=== PATIENT | female | born 1960 | race Caucasian/White ===

== ENCOUNTER 2017-07-01 05:40 | Emergency (ER) | payer SELFPAY ==
[~2017-07-01] VITALS: Ht 170.2 cm; Wt 65.0 kg
[~2017-07-01 05:40] MED LIST: ALBU6.7H PO; AMOX1TAB61 PO; TIOT18CA INH
[2017-07-01] MEDS ORDERED: ALBUTEROL SULFATE 2.5 MG/3 ML ONE (06:00)
[2017-07-01] MEDS ORDERED: SODIUM CHLORIDE 0.9% 1,000 ML IV ONE (06:07)
[2017-07-01] MEDS ORDERED: SODIUM CHLORIDE 0.9% 1,000ML IVBOLUS ONE (06:30)
[2017-07-01 06:51] LABS: HEMATOCRIT 43.9 % (34.6-47.8); HEMOGLOBIN 14.9 g/dL (11.7-16.4); WHITE BLOOD COUNT 12.2 x10^3/uL (3.4-10)
[2017-07-01] MEDS ORDERED: ALBUTEROL SULFATE 2.5 MG/3 ML NPPB ONE (07:00)
[2017-07-01 07:04] LABS: BLOOD UREA NITROGEN 13 mg/dL (7-18)
[2017-07-01 07:17] LABS: IS PT STATUS REG ER OR PRE ER? YES
[2017-07-01] MEDS ORDERED: LIDOCAINE 1%, 20ML SQ ONE (07:30)
[2017-07-01] MEDS ORDERED: CEFAZOLIN 1,000 MG IM ONE (08:00)
[2017-07-01] MEDS ORDERED: CEFAZOLIN 1,000 MG ONE (08:26)
[2017-07-01 09:09] VITALS: BP 130/83
== END 2017-07-01 09:11 | disposition home or self-care (01) ==
LOC: ED 08:30
DX: J20.9 Acute bronchitis, unspecified (principal); N76.4 Abscess of vulva
CPT/HCPCS: 36415; 56405; 71010; 80048; 82040; 84436; 84443; 84484; 85025; 85379; 93005; 94640; 96372; 99285; J0690; J7512; J7613

== ENCOUNTER 2018-05-23 02:14 | Emergency (ER) | payer SELFPAY ==
[~2018-05-23] VITALS: Ht 170.2 cm; Wt 75.0 kg
[2018-05-23] MEDS ORDERED: ONDANSETRON ODT 4 MG ONE (02:40)
[2018-05-23] MEDS ORDERED: HYDROcodone/APAP 5/325 TABLET ONE (02:40)
[2018-05-23] MEDS ORDERED: OXYcodone/APAP 5/325MG TABLET ONE (02:52)
[2018-05-23] MEDS ORDERED: OXYcodone/APAP 5/325MG TABLET PO ONE (03:00)
[2018-05-23] MEDS ORDERED: ONDANSETRON ODT 4 MG PO ONE (03:00)
[2018-05-23 03:20] LABS: ALANINE AMINOTRANSFERASE 30 U/L (12-78); ALBUMIN 3.6 g/dL (3.4-5.0); ANION GAP 7 mmol/L (5-15); CALCIUM 8.8 mg/dL (8.5-10.1); CHLORIDE 107 mmol/L (98-107); CREATININE 1.06 mg/dL (0.55-1.02)
[2018-05-23 03:22] LABS: ALKALINE PHOSPHATASE 105 U/L (45-117); BILIRUBIN,TOTAL 0.3 mg/dL (0.2-1.0); TOTAL PROTEIN 7.4 g/dL (6.4-8.2)
[2018-05-23 03:29] LABS: BASOPHILS # (AUTO) 0.14 x10^3/uL (0-0.1); BASOPHILS % (AUTO) 1 % (0-1); EOSINOPHILS # (AUTO) 0.21 x10^3/uL (0-0.4); EOSINOPHILS % (AUTO) 2 % (1-7); LYMPHOCYTES # (AUTO) 3.45 x10^3/uL (1-3.4); LYMPHOCYTES % (AUTO) 26 % (22-44); MD NO; MEAN CORPUSCULAR HEMOGLOBIN 29.5 pg (27.0-34.8); MEAN CORPUSCULAR HGB CONC 33.7 g/dL (32.4-35.8); MEAN CORPUSCULAR VOLUME 87.4 fL (80-100); MONOCYTES % (AUTO) 9 % (2-9); NEUTROPHILS # (AUTO) 8.23 x10^3/uL (1.8-6.8); NEUTROPHILS % (AUTO) 62 % (42-75); PLATELET COUNT 316 x10^3/uL (130-400); RED BLOOD COUNT 5.24 x10^6/uL (3.82-5.3); RED CELL DISTRIBUTION WIDTH 12.9 % (9.6-15.2)
[2018-05-23 05:11] VITALS: BP 127/65
== END 2018-05-23 05:12 | disposition home or self-care (01) ==
LOC: ED 05:00
DX: M25.551 Pain in right hip (principal); R10.31 Right lower quadrant pain; J45.909 Unspecified asthma, uncomplicated; I10 Essential (primary) hypertension
CPT/HCPCS: 36415; 72110; 73502; 80053; 80307; 85025; 99285; Q0162

== ENCOUNTER 2021-04-02 19:48 | Emergency (ER) | payer MEDICAID ==
[~2021-04-02] VITALS: Ht 172.7 cm; Wt 74.8 kg
[~2021-04-02 19:48] MED LIST changes: -ALBU6.7H PO; +ALBU6.7H8 PO; +AMLODIPINE
[2021-04-02] MEDS ORDERED: LISINOPRIL 10 MG TABLET PO ONE (21:00)
[2021-04-02] MEDS ORDERED: LISINOPRIL 10 MG TABLET ONE (21:05)
[2021-04-02 21:25] LABS: BASOPHILS % (AUTO) 1 % (0-1); EOSINOPHILS % (AUTO) 1 % (1-7); LYMPHOCYTES % (AUTO) 39 % (22-44); MEAN CORPUSCULAR HEMOGLOBIN 29.6 pg (27.0-34.8); MEAN CORPUSCULAR HGB CONC 34.1 g/dL (32.4-35.8); MEAN PLATELET VOLUME 7.6 fL (7.4-10.4); MONOCYTES % (AUTO) 10 % (2-9); NEUTROPHILS % (AUTO) 48 % (42-75); RED BLOOD COUNT 5.17 x10^6/uL (3.82-5.3); RED CELL DISTRIBUTION WIDTH 12.8 % (9.6-15.2)
[2021-04-02 21:37] LABS: ALBUMIN 3.4 g/dL (3.4-5.0); ANION GAP 7 mmol/L (5-15); CALCIUM 8.5 mg/dL (8.5-10.1); CHLORIDE 107 mmol/L (98-107)
[2021-04-02 21:39] LABS: ALANINE AMINOTRANSFERASE 34 U/L (12-78); ALKALINE PHOSPHATASE 97 U/L (45-117); BILIRUBIN,TOTAL 0.3 mg/dL (0.2-1.0); CREATININE 0.88 mg/dL (0.55-1.02); TOTAL PROTEIN 7.1 g/dL (6.4-8.2); TROPONIN I < 0.015 ng/mL (0.000-0.045)
--- NOTE | 2021-04-02 21:45 | NUR ---
pt provided juice, crackers and peanut butter
[2021-04-02 21:50] LABS: PLATELET COUNT 315 x10^3/uL (130-400)
[2021-04-02 22:42] VITALS: BP 158/92
== END 2021-04-02 22:50 | disposition home or self-care (01) ==
LOC: ED 22:30
DX: R07.89 Other chest pain (principal); R06.02 Shortness of breath; I10 Essential (primary) hypertension; R00.0 Tachycardia, unspecified; J45.909 Unspecified asthma, uncomplicated; Z90.710 Acquired absence of both cervix and uterus
CPT/HCPCS: 36415; 71045; 80053; 84484; 85025; 93005; 99285